=== PATIENT | female | born 1985 | race Caucasian/White ===

== ENCOUNTER → 2017-08-26 | Outpatient (CLI) | payer BC | LOC: BHSO 11:07 | DX: F31.81 Bipolar II disorder (principal) ==

== ENCOUNTER → 2017-09-29 | Outpatient (CLI) | payer BC | LOC: BHSO 09:32 | DX: F31.81 Bipolar II disorder (principal) | CPT/HCPCS: G0463 ==

== ENCOUNTER → 2017-11-20 | Outpatient (CLI) | payer BC | LOC: BHSO 15:18 | DX: F31.81 Bipolar II disorder (principal) | CPT/HCPCS: G0463 ==

== ENCOUNTER → 2018-01-06 | Outpatient (CLI) | payer BC | LOC: BHSO 16:14 | DX: F31.81 Bipolar II disorder (principal) | CPT/HCPCS: G0463 ==

== ENCOUNTER → 2018-03-10 | Outpatient (CLI) | payer BC | LOC: BHSO 16:00 | DX: F31.81 Bipolar II disorder (principal) | CPT/HCPCS: G0463 ==

== ENCOUNTER → 2018-05-13 | Outpatient (CLI) | payer BC | LOC: BHSO 08:37 | DX: F31.81 Bipolar II disorder (principal) | CPT/HCPCS: G0463 ==